=== PATIENT | male | born 1960 | race Caucasian/White ===

== ENCOUNTER 2016-09-26 11:03 | Day surgery (SDC) | payer OTHER ==
[2016-09-23 15:34] VITALS: BMI 28.7
[~2016-09-26 11:03] MED LIST: LACTATED RINGERS 1,000 ML IV SCH; LIDOCAINE 1% 20 ML VIAL (10MG/ML) FOR IV START INTRADERMA PRN
[2016-09-26 11:43] VITALS: RESP 16; TEMP 98.3
[2016-09-26] MEDS ORDERED: PROPOFOL 10 MG/ML 20 ML VIAL IV ONE (12:49)
--- NOTE | 2016-09-26 13:21 | P.OP ---
Date of Procedure: 09/26/16 Preoperative Diagnosis: Diverticuitis with mircroperforation Postoperative Diagnosis: Diverticulosis of large intestine without perforation or bleeding Transverse colon polyp Procedure(s) Performed: Colonoscopy with hot snare polypectomy Anesthesia: LUCY Surgeon: Cheryle Campbell Estimated Blood Loss (ml): 1 Pathology: other Condition: stable Disposition: PACU Indications for Procedure: history of diverituclitis Operative Findings: Small flat poylp Diverticulosis in the sigmoid colon Description of Procedure: The patient was brought to the endoscopy suite and placed in lateral decubitus position. IV sedation was given as per anesthesia team. A timeout was performed to verify correct patient and correct procedure.Perianal examination did not reveal any external hemorrhoids. Digital rectal examination was performed. Prostate was of normal size. A well- lubricated endoscope was passed per rectally and was gradually advanced beyond the sigmoid colon, splenic flexure, transverse colon, hepatic flexure and cecum. The ileocecal valve was visualized. Then minimal diverticulosis noted without any evidence of diverticulitis within the simoigs colon. Scope was gradually withdrawn inspecting all the mucosal surfaces. A polyp was seen in the transverse colon near the splenic flexure and removed with hot snare polypectomy.. Bowel prep was fair. No other polyps or masses noted. Retroflexed in the rectum and no internal hemorrhoid was noted . The scope was gradually withdrawn. Patient tolerated the procedure well and was taken to post anesthesia care unit in stable condition. Recommend repeat colonoscopy in 10 years
[2016-09-26 13:54] VITALS: BP 138/77; PULSE 64
== END 2016-09-26 14:04 | disposition home or self-care (01) ==
LOC: ORWHC2ENDO 11:03
PROVIDERS: ATTEND Surgery
DX: K57.30 Diverticulosis of large intestine without perforation or abscess without bleeding (principal); D12.3 Benign neoplasm of transverse colon; I10 Essential (primary) hypertension; E78.5 Hyperlipidemia, unspecified; G89.29 Other chronic pain; Z79.82 Long term (current) use of aspirin; Z79.891 Long term (current) use of opiate analgesic; Z79.899 Other long term (current) drug therapy; Z91.030 Bee allergy status; Z91.09 Other allergy status, other than to drugs and biological substances; Z91.013 Allergy to seafood; Z87.891 Personal history of nicotine dependence
CPT/HCPCS: 88305; 45385; J2704

== ENCOUNTER → 2016-10-09 | Outpatient (CLI) | payer OTHER ==
[2016-10-09 14:20] LABS: Blood Urea Nitrogen 14 mg/dL (9-20); Non-African American GFR(MDRD) >60 (>60 ml/min/1.73 sqM)
== END | disposition home or self-care (01) ==
LOC: LABWHC1 13:45
PROVIDERS: ATTEND Nurse Practitioner Acute Care
DX: M54.5 Low back pain (principal); M54.6 Pain in thoracic spine
CPT/HCPCS: 36415; 82565; 84520

== ENCOUNTER → 2016-10-10 | Outpatient (CLI) | payer OTHER ==
--- NOTE | 2016-10-10 22:19 | MR ---
EXAMINATION TYPE: MR thoracic spine wo con DATE OF EXAM: 10/10/2016 6:28 PM COMPARISON: NONE HISTORY: Tspine pain CONTRAST: Performed utilizing 0 mL intravenous MultiHance gadolinium contrast. TECHNIQUE: Multiplanar, multiecho imaging on a 3.0 Carmen magnet is performed through the thoracic spi ne. Spinal cord maintains normal signal through its visualized course. Vertebral body alignment is normal. Vertebral body heights are preserved. There is mild right paracentral disc bulge T2-T3 with mild anterior thecal sac compression. No cord c ontact is evident. No spinal canal stenosis present. Neural foramen are patent. Minimal right paracen tral endplate changes at T1-2 is present with minimal anterior thecal sac contact. No cord contact is evident. No spinal canal stenosis is present. Neural foramen are patent. Disc desiccation is present. No spinal canal stenosis is evident. IMPRESSIONS: 1. Mild right paracentral disc bulging T1-2 and T2-3. 2. This is diminished at the T2-3 level from comparison study.
--- NOTE | 2016-10-10 22:23 | MR ---
EXAMINATION TYPE: MR lumbar spine wo/w con DATE OF EXAM: 10/10/2016 6:29 PM COMPARISON: 11/17/2014 HISTORY: Lumbago CONTRAST: 18 mL intravenous MultiHance. TECHNIQUE: Multiplanar, multisequence images of the lumbar spine were acquired. FINDINGS: There is a cord termination at approximately the L1 level. Disc heights appear preserved. L4-5 and L5-S1 disc hydration is diminished. L5-S1: Broad-based disc bulge is present with anterior thecal sac contact. Left S1 nerve root eugene andrez and displacement appears to be present. Minimal right S1 nerve root contacts not entirely exclud ed. There is mild right and [id number] left foraminal narrowing. No AP spinal canal stenosis is present. The impression on the left S1 nerve root may have increased over the interval. L4-L5: Minimal disc bulge may be present. This has anterior thecal sac contact. No AP spinal canal st enosis present. No foraminal stenosis. Facet hypertrophy is present.. L3-L4: No significant disc bulge or disc herniation. No spinal canal stenosis. No foraminal stenosi s. . L2-L3: No significant disc bulge or disc herniation. No spinal canal stenosis. No foraminal stenosi s. . L1-L2: No significant disc bulge or disc herniation. No spinal canal stenosis. No foraminal stenosi s. . T12-L1: No significant disc bulge or disc herniation. No spinal canal stenosis. No foraminal stenos is. . IMPRESSION: 1. Central and left paracentral disc bulging L5-S1 likely has nerve root compression and posterior di splacement of the left S1 nerve root. Correlate with radicular symptoms. Findings appear to be increa sing from the comparison 2014. 2. Minimal disc bulge L4-5 with anterior thecal sac flattening.
== END | disposition home or self-care (01) ==
LOC: RADMRIMAIN 17:06
PROVIDERS: ATTEND Nurse Practitioner Acute Care
DX: M51.24 Other intervertebral disc displacement, thoracic region (principal); M51.27 Other intervertebral disc displacement, lumbosacral region
CPT/HCPCS: 72146; 72158; A9577

== ENCOUNTER 2017-03-14 16:17 | Emergency (ER) | payer OTHER ==
[2017-03-14] MEDS ORDERED: SODIUM CHLORIDE 0.9% 1,000 ML IV STA (17:33)
[2017-03-14] MEDS ORDERED: ORPHENADRINE 30 MG/ML 2 ML VIAL IVP STA (17:34)
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
[2017-03-14 18:10] LABS: Basophils # (A) 0.1 k/uL (0-0.2); Basophils % (A) 1 %; CH 32.5; CHCM 35.3; Eosinophils # (A) 0.1 k/uL (0-0.7); Eosinophils % (A) 1 %; HCT 51.2 % (39.0-53.0); HDW 2.51; HGB 17.8 gm/dL (13.0-17.5); Luc # (Auto) 0.33; Luc % (Auto) 3; Lymphocytes # (A) 1.8 k/uL (1.0-4.8); Lymphocytes % (A) 15 %; MCH 32.1 pg (25.0-35.0); MCHC 34.7 g/dL (31.0-37.0); MCV 92.6 fL (80.0-100.0); Monocytes # (A) 0.7 k/uL (0-1.0); Monocytes % (A) 6 %; Neutrophils % (A) 75 %; RBC 5.53 m/uL (4.30-5.90); RDW 13.6 % (11.5-15.5); WBC 12.1 k/uL (3.8-10.6); WBC (Perox) 11.65
[2017-03-14 18:23] LABS: ALT 45 U/L (21-72); AST 31 U/L (17-59); Alkaline Phosphatase 87 U/L (38-126); Anion Gap 14 mmol/L; Blood Urea Nitrogen 15 mg/dL (9-20); Calcium 9.8 mg/dL (8.4-10.2); Carbon Dioxide 21 mmol/L (22-30); Chloride 103 mmol/L (98-107); Glucose 95 mg/dL (74-99); Non-African American GFR(MDRD) >60 (>60 ml/min/1.73 sqM); Potassium 4.2 mmol/L (3.5-5.1); Sodium 138 mmol/L (137-145); Total Bilirubin 0.7 mg/dL (0.2-1.3); Total Protein 8.3 g/dL (6.3-8.2)
[2017-03-14 19:41] VITALS: BP 170/91; PULSE 58; RESP 18; TEMP 98.1
== END 2017-03-14 19:44 | disposition home or self-care (01) ==
LOC: EC 16:17
DX: M79.605 Pain in left leg (principal); M79.604 Pain in right leg; R11.10 Vomiting, unspecified; I10 Essential (primary) hypertension; M19.90 Unspecified osteoarthritis, unspecified site; Z85.828 Personal history of other malignant neoplasm of skin; Z87.891 Personal history of nicotine dependence; Z79.82 Long term (current) use of aspirin; Z79.891 Long term (current) use of opiate analgesic; Z79.899 Other long term (current) drug therapy
CPT/HCPCS: 36415; 80053; 85025; 99284; 96374; 96361; J2360

== ENCOUNTER 2017-03-16 09:04 | Inpatient (IN) | payer OTHER ==
[2017-03-16] MEDS ORDERED: SODIUM CHLORIDE 0.9% 1,000 ML IV STA (09:07)
[2017-03-16] MEDS ORDERED: RX INFO: IV CONTRAST WAS GIVEN 1 EACH MISC MISCELLANE PRN ×2 (09:07→15:32)
[2017-03-16] MEDS ORDERED: HYDROmorphone 1 MG/ML 1 ML SYRINGE IVP STA ×3 (09:12→14:51)
[2017-03-16] MEDS ORDERED: diphenhydrAMINE 50 MG/ML 1 ML VIAL IVP STA ×2 (09:12→15:32)
[2017-03-16] MEDS ORDERED: FAMOTIDINE 20 MG/2 ML VIAL IV STA (09:12)
[2017-03-16] MEDS ORDERED: ONDANSETRON 4 MG/2 ML VIAL IVP STA (09:12)
[2017-03-16] MEDS ORDERED: methylPREDNISolone SOD SUCCI 125 MG/2 ML VIAL IV STA (09:12)
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
[2017-03-16 10:11] LABS: ALT 42 U/L (21-72); AST 21 U/L (17-59); Alkaline Phosphatase 91 U/L (38-126); Amylase <30 U/L (30-110); Anion Gap 12 mmol/L; Blood Urea Nitrogen 20 mg/dL (9-20); Carbon Dioxide 15 mmol/L (22-30); Chloride 110 mmol/L (98-107); Glucose 178 mg/dL (74-99); Non-African American GFR(MDRD) >60 (>60 ml/min/1.73 sqM); Potassium 5.2 mmol/L (3.5-5.1); Sodium 137 mmol/L (137-145); Total Bilirubin 0.9 mg/dL (0.2-1.3); Total Protein 6.7 g/dL (6.3-8.2)
[2017-03-16 10:15] LABS: INR 1.2 (<1.2)
[2017-03-16 10:16] LABS: Prothrombin Time 11.7 sec (9.0-12.0)
[2017-03-16 10:18] LABS: CH 32.4; CHCM 34.2; HCT 51.9 % (39.0-53.0); HDW 2.51; HGB 17.7 gm/dL (13.0-17.5); Immature Gran Flag Moderate; MCH 32.3 pg (25.0-35.0); MCHC 34.1 g/dL (31.0-37.0); MCV 94.9 fL (80.0-100.0); Mean Platelet Volume 7.2; Partial Thromboplastin Time 23.7 sec (22.0-30.0); RBC 5.47 m/uL (4.30-5.90); RDW 13.4 % (11.5-15.5); WBC (Perox) 12.14
--- NOTE | 2017-03-16 10:31 | CT ---
EXAMINATION TYPE: CT abdomen pelvis w con DATE OF EXAM: 03/16/2017 COMPARISON: 06/16/2016 INDICATION: LLQ pain, history of diverticulitis DLP: 1582.7 mGycm, Automated exposure control for dose reduction was used. CONTRAST: 100 mL of Omnipaque 300. Study performed without Oral Contrast TECHNIQUE: Axial images were obtained from above the diaphragm to the pubic rami in the axial plane a t 5 mm thick sections. Reconstructed images are reviewed on the computer in the coronal plane. FINDINGS: Limited CT sections are obtained the lung bases. Some compressive atelectasis within the posterior r ight lung base. Lung bases are otherwise clear CT ABDOMEN: There are multiple scattered areas of free air throughout the abdomen. Inflammatory alexander es are adjacent to the distal descending proximal sigmoid colon region. Rupture of a diverticulum cheikh uld be considered at this level. Liver: Normal Spleen: Normal Pancreas: Normal Adrenal glands: The adrenal glands are normal. Gallbladder: Normal Kidneys: No masses are evident. No hydronephrosis is present. No cysts are present. Delayed images were obtained through the kidneys, which remain unremarkable. Aorta: Vascular calcification is within the aorta. Aortic stent has been placed below the renal tim linsey extending to the femoral regions. Inferior vena cava: Normal. CT PELVIS: Proximal ascending and transverse colon appears normal. Small bowel loops without oral contrast rashmi l. Inflammatory changes are in the left lower quadrant with some inflammatory changes adjacent to sma ll bowel is. No obstruction is evident. Findings appear to be related to acute diverticulitis. Appendix: Not visualized. There is fluid adjacent to the cecum. Urinary bladder: Normal. Genitourinary structures: Prostate contains calcification. Osseous structures: No suspicious lytic or sclerotic lesions. IMPRESSIONS: 1. Scattered punctate areas of free air throughout the abdomen. This may be related to a ruptured di verticulum an acute diverticulitis of the left lower quadrant. 2. Inflammatory changes with a couple of diverticulum in the descending colon sigmoid colon junction region suspicious for acute diverticulitis. 3. Report was called to the emergency room physician by Dr. Demarco by telephone at time of interpret ation.
[2017-03-16] MEDS ORDERED: LEVOFLOXACIN 750MG-D5W PMX 750 MG in DEXTROSE/WATER 1 150ML.BAG IVPB STA (10:33)
[2017-03-16] MEDS ORDERED: metroNIDAZOLE-NS PMX 500 MG in SALINE 1 100ML.BAG IVPB STA (10:35)
[2017-03-16 10:47] LABS: Add Differential Manual Differential
[2017-03-16 10:50] LABS: Band Neutrophils % 16 %; Nucleated Red Blood Cells 0 /100 WBC (0-0); Total Cells Counted 200
[2017-03-16 10:51] LABS: Manual Review Performed
[2017-03-16] MEDS ORDERED: NALOXONE 0.4 MG/ML 1 ML VIAL IV PRN (10:56)
[2017-03-16] MEDS ORDERED: HYDROmorphone 1 MG/ML 1 ML SYRINGE IV PRN (10:56)
[2017-03-16] MEDS ORDERED: LORazepam 2 MG/ML SYRINGE IV PRN (10:56)
[2017-03-16] MEDS ORDERED: ONDANSETRON 4 MG/2 ML VIAL IVP PRN (10:56)
[2017-03-16 12:07] VITALS: BMI 28.7
[2017-03-16] MEDS ORDERED: SODIUM CHLORIDE 0.9% 1,000 ML IV ONE (14:16)
[2017-03-16] MEDS ORDERED: SODIUM CHLORIDE 0.9% 500 ML IV ONE (14:16)
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
[2017-03-16] MEDS ORDERED: HYDROCORTISONE SUCCINATE 100 MG/2 ML VIAL IV STA (15:31)
[2017-03-16 15:43] VITALS: BP 166/104; PULSE 103; RESP 20; TEMP 97.3
[2017-03-16 15:51] LABS: Appearance,Urine Clear (Clear); Bilirubin,Urine Negative (Negative); Glucose,Urine (UA) 3+ (Negative); Ketones,Urine Negative (Negative); Leukocyte Esterase,Urine Negative (Negative); Nitrite,Urine Negative (Negative); Protein,Urine Trace (Negative); UA Billing (MACRO vs. MICRO) CHEM; Urobilinogen,Urine <2.0 mg/dL (<2.0)
[2017-03-16 15:59] LABS: Specific Gravity,Urine >1.050 (1.001-1.035)
[2017-03-16] MEDS ORDERED: GABAPENTIN 300 MG CAP PO SCH (16:00)
[2017-03-16] MEDS: HYDROmorphone 2 MG/ML 1 ML SYRINGE IV PRN ×2 (16:39→18:26)
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
--- NOTE | 2017-03-16 17:37 | CT ---
EXAMINATION TYPE: CT angio lower extremity LT DATE OF EXAM: 03/16/2017 5:19 PM COMPARISON: NONE HISTORY: Patient complains of left leg pain. RN unable to get doppler pulse. CT DLP: 918.7 mGycm Automated exposure control for dose reduction was used. TECHNIQUE: Performed with IV Contrast, patient injected with 100 mL of Omnipaque 350. . FINDINGS: Multiple axial sections were obtained from the iliac crest to the bottom of the feet with intravenous contrast. There are 3-D post processed images. There is demonstration of arterial flow in the anterior and posterior tibial arteries on the right si de as well as the peroneal artery. I see no arterial flow during the images in the left tibial artery branches. There is arterial flow in the right popliteal artery with some mural thrombus. There is similarly no definite contrast in the left popliteal artery. There is very little contrast seen at the aortic bifurcation. There is apparent aorta iliac bypass gr aft which shows no contrast. There is inflammatory change around the mid sigmoid colon with fat stranding and sigmoid colon wall t hickening. There are sigmoid diverticula. There is severe stenosis of the lower abdominal aorta at th e aortic bifurcation. There is contrast in the urinary bladder from the previous CT scan of the abdom en today. There is mild free fluid in the pelvis. IMPRESSION: THERE ARE INFLAMMATORY CHANGES RELATED TO DIVERTICULITIS IN THE SIGMOID COLON. STENOSIS OF THE LOWER ABDOMINAL AORTA WITH BYPASS GRAFT THAT APPEARS OCCLUDED. THERE IS FLOW IN THE R IGHT ILIAC FEMORAL POPLITEAL AND TIBIAL ARTERIES. THERE IS UP TO 50% STENOSIS OF THE RIGHT FEMORAL AR MARGA. THERE IS POSSIBLE RIGHT FEMORAL ARTERY STENT AND SHOULD BE CORRELATED WITH THE SURGICAL HISTORY . ON THE LEFT SIDE THERE IS NO DEMONSTRATED FLOW IN THE LEFT ILIAC ARTERY BYPASS GRAFT WELL THE N ATIVE LEFT ILIAC ARTERY AND LEFT FEMORAL POPLITEAL AND TIBIAL ARTERIES. THIS COULD BE CONFIRMED BY [facility] IF CLINICALLY INDICATED.
[2017-03-16] MEDS ORDERED: HEPARIN SODIUM,PORCINE 5,000 UNIT/ML 1 ML VIAL IV PRN (17:54)
[2017-03-16] MEDS ORDERED: HEPARIN SODIUM,PORCINE/D5W PMX 25,000 UNIT in DEXTROSE/WATER 1 500ML.BAG IV SCH (18:00)
[2017-03-16] MEDS ORDERED: HEPARIN SODIUM,PORCINE 5,000 UNIT/ML 1 ML VIAL IV ONE (18:15)
[2017-03-16 18:29] LABS: Basophils % (A) 0 %; CH 31.9; CHCM 32.5; Eosinophils % (A) 0 %; HCT 46.5 % (39.0-53.0); HDW 2.49; HGB 15.4 gm/dL (13.0-17.5); Luc # (Auto) 0.13; Luc % (Auto) 1; Lymphocytes # (A) 0.3 k/uL (1.0-4.8); Lymphocytes % (A) 3 %; MCH 32.6 pg (25.0-35.0); MCHC 33.1 g/dL (31.0-37.0); MCV 98.5 fL (80.0-100.0); Mean Platelet Volume 6.9; Monocytes # (A) 0.4 k/uL (0-1.0); Monocytes % (A) 3 %; Neutrophils # (A) 10.4 k/uL (1.3-7.7); Neutrophils % (A) 93 %; RBC 4.72 m/uL (4.30-5.90); RDW 13.6 % (11.5-15.5); WBC 11.2 k/uL (3.8-10.6); WBC (Perox) 11.48
[2017-03-16 18:45] LABS: INR 1.3 (<1.2); Partial Thromboplastin Time 26.1 sec (22.0-30.0); Prothrombin Time 12.5 sec (9.0-12.0)
[2017-03-17] MEDS ORDERED: metroNIDAZOLE-NS PMX 500 MG in SALINE 1 100ML.BAG IVPB SCH
[2017-03-17] MEDS ORDERED: LEVOFLOXACIN 500MG-D5W PMX 500 MG in DEXTROSE/WATER 1 100ML.BAG IVPB SCH (10:00)
== END 2017-03-16 19:52 | disposition short-term general hospital (02) | DRG 872 ==
LOC: EC 09:04 → 4MS4W 10:30
PROVIDERS: ADMIT Hospitalist; ATTEND Hospitalist
DX: A41.9 Sepsis, unspecified organism (principal); E87.2 Acidosis; K57.20 Diverticulitis of large intestine with perforation and abscess without bleeding; E86.0 Dehydration; E87.5 Hyperkalemia; F32.9 Major depressive disorder, single episode, unspecified; G89.4 Chronic pain syndrome; I10 Essential (primary) hypertension; J44.9 Chronic obstructive pulmonary disease, unspecified; M54.9 Dorsalgia, unspecified; R74.8 Abnormal levels of other serum enzymes; M19.90 Unspecified osteoarthritis, unspecified site; I99.8 Other disorder of circulatory system; Z79.82 Long term (current) use of aspirin; Z79.899 Other long term (current) drug therapy; Z85.828 Personal history of other malignant neoplasm of skin; Z87.891 Personal history of nicotine dependence; Z91.041 Radiographic dye allergy status; Z82.49 Family history of ischemic heart disease and other diseases of the circulatory system
CPT/HCPCS: 36415; 74177; 80053; 81003; 82150; 82553; 83605; 83690; 85025; 85610; 85730; 87040; 87086; 96361; 96365; 96375; 96376; 99285

== ENCOUNTER → 2017-04-01 | Outpatient (CLI) | payer OTHER ==
[2017-04-01 12:42] LABS: ALT 40 U/L (21-72); AST 19 U/L (17-59); Alkaline Phosphatase 98 U/L (38-126); Anion Gap 12 mmol/L; Blood Urea Nitrogen 13 mg/dL (9-20); Calcium 9.4 mg/dL (8.4-10.2); Carbon Dioxide 21 mmol/L (22-30); Chloride 104 mmol/L (98-107); Glucose 104 mg/dL (74-99); Non-African American GFR(MDRD) >60 (>60 ml/min/1.73 sqM); Sodium 137 mmol/L (137-145); Total Bilirubin 0.4 mg/dL (0.2-1.3); Total Protein 7.2 g/dL (6.3-8.2)
[2017-04-01 12:57] LABS: Anisocytosis Slight; Basophils # (A) 0.1 k/uL (0-0.2); Basophils % (A) 1 %; CH 32.3; CHCM 32.3; Eosinophils # (A) 0.1 k/uL (0-0.7); Eosinophils % (A) 1 %; HCT 35.9 % (39.0-53.0); HDW 3.22; Hypochromasia Slight; Luc # (Auto) 0.34; Luc % (Auto) 2; Lymphocytes # (A) 1.4 k/uL (1.0-4.8); Lymphocytes % (A) 10 %; MCH 32.6 pg (25.0-35.0); MCHC 32.4 g/dL (31.0-37.0); MCV 100.6 fL (80.0-100.0); Macrocytosis Slight; Mean Platelet Volume 7.9; Monocytes % (A) 7 %; Neutrophils # (A) 11.3 k/uL (1.3-7.7); Neutrophils % (A) 79 %; RBC 3.57 m/uL (4.30-5.90); RDW 16.8 % (11.5-15.5); WBC 14.3 k/uL (3.8-10.6)
[2017-04-01 13:01] LABS: HGB 11.6 gm/dL (13.0-17.5)
== END | disposition home or self-care (01) ==
LOC: LABWHC1 11:44
PROVIDERS: ATTEND Family Medicine
DX: Z09 Encounter for follow-up examination after completed treatment for conditions other than malignant neoplasm (principal)
CPT/HCPCS: 36415; 80053; 85025

== ENCOUNTER → 2017-04-04 | Outpatient (CLI) | payer OTHER ==
[2017-04-04 11:45] LABS: Anisocytosis Slight; Basophils # (A) 0.1 k/uL (0-0.2); Basophils % (A) 1 %; CH 32.3; CHCM 32.7; Eosinophils # (A) 0.1 k/uL (0-0.7); Eosinophils % (A) 1 %; HCT 37.6 % (39.0-53.0); HDW 3.03; Luc # (Auto) 0.39; Luc % (Auto) 3; Lymphocytes # (A) 1.6 k/uL (1.0-4.8); Lymphocytes % (A) 11 %; MCH 31.8 pg (25.0-35.0); MCV 99.4 fL (80.0-100.0); Macrocytosis Slight; Mean Platelet Volume 7.5; Monocytes # (A) 0.9 k/uL (0-1.0); Monocytes % (A) 6 %; Neutrophils # (A) 11.5 k/uL (1.3-7.7); Neutrophils % (A) 79 %; RBC 3.78 m/uL (4.30-5.90); RDW 16.3 % (11.5-15.5); WBC 14.6 k/uL (3.8-10.6); WBC (Perox) 14.91
== END | disposition home or self-care (01) ==
LOC: LABWHC1 11:04
PROVIDERS: ATTEND Family Medicine
DX: R89.9 Unspecified abnormal finding in specimens from other organs, systems and tissues (principal)
CPT/HCPCS: 36415; 85025

== ENCOUNTER → 2017-04-10 | Outpatient (CLI) | payer OTHER ==
[2017-04-10 12:22] LABS: % Iron Saturation 22.1 % (20-50)
[2017-04-10 12:25] LABS: Basophils # (A) 0.1 k/uL (0-0.2); Basophils % (A) 1 %; CH 32.2; CHCM 32.1; Eosinophils # (A) 0.1 k/uL (0-0.7); Eosinophils % (A) 1 %; HCT 39.4 % (39.0-53.0); HDW 2.74; HGB 12.4 gm/dL (13.0-17.5); Luc # (Auto) 0.19; Luc % (Auto) 2; Lymphocytes # (A) 1.6 k/uL (1.0-4.8); Lymphocytes % (A) 18 %; MCH 31.6 pg (25.0-35.0); MCHC 31.4 g/dL (31.0-37.0); MCV 100.6 fL (80.0-100.0); Macrocytosis Slight; Mean Platelet Volume 7.2; Monocytes # (A) 0.4 k/uL (0-1.0); Monocytes % (A) 5 %; Neutrophils # (A) 6.6 k/uL (1.3-7.7); Neutrophils % (A) 73 %; RBC 3.92 m/uL (4.30-5.90); WBC 9.1 k/uL (3.8-10.6); WBC (Perox) 9.52
== END | disposition home or self-care (01) ==
LOC: LABWHC1 11:31
PROVIDERS: ATTEND Family Medicine
DX: R89.9 Unspecified abnormal finding in specimens from other organs, systems and tissues (principal)
CPT/HCPCS: 36415; 82728; 83540; 83550; 85025

== ENCOUNTER → 2017-05-01 | Outpatient (CLI) | payer OTHER ==
[2017-05-01 14:23] LABS: CHCM 32.3; HCT 42.1 % (39.0-53.0); HDW 2.61; HGB 13.2 gm/dL (13.0-17.5); MCH 31.1 pg (25.0-35.0); MCHC 31.3 g/dL (31.0-37.0); MCV 99.3 fL (80.0-100.0); Macrocytosis Slight; Mean Platelet Volume 7.4; RBC 4.24 m/uL (4.30-5.90); RDW 14.8 % (11.5-15.5); WBC 11.7 k/uL (3.8-10.6)
[2017-05-01 14:45] LABS: ALT 49 U/L (21-72); AST 22 U/L (17-59); Anion Gap 12 mmol/L; Blood Urea Nitrogen 13 mg/dL (9-20); Calcium 9.6 mg/dL (8.4-10.2); Carbon Dioxide 22 mmol/L (22-30); Chloride 107 mmol/L (98-107); Glucose 87 mg/dL (74-99); Non-African American GFR(MDRD) >60 (>60 ml/min/1.73 sqM); Potassium 4.5 mmol/L (3.5-5.1); Sodium 141 mmol/L (137-145)
[2017-05-01 18:33] LABS: Iron Saturation 14.97 (15.00-50.00)
== END | disposition home or self-care (01) ==
LOC: LABWHC1 13:18
PROVIDERS: ATTEND Family Medicine
DX: E78.5 Hyperlipidemia, unspecified (principal); I10 Essential (primary) hypertension; D64.9 Anemia, unspecified
CPT/HCPCS: 36415; 80048; 82728; 83540; 83550; 84450; 84460; 85027

== ENCOUNTER → 2017-12-08 | Outpatient (CLI) | payer OTHER ==
[2017-12-08 10:53] LABS: HGB 15.6 gm/dL (13.0-17.5); MCH 29.9 pg (25.0-35.0); MCHC 33.3 g/dL (31.0-37.0); Mean Platelet Volume 7.3; Platelet Count 285 k/uL (150-450); RBC 5.23 m/uL (4.30-5.90); RDW 14.3 % (11.5-15.5); WBC 11.2 k/uL (3.8-10.6)
[2017-12-08 10:56] LABS: Appearance,Urine Clear (Clear); Bilirubin,Urine Negative (Negative); Blood,Urine Negative (Negative); Color,Urine Yellow; Glucose,Urine (UA) Negative (Negative); Ketones,Urine Negative (Negative); Leukocyte Esterase,Urine Negative (Negative); Nitrite,Urine Negative (Negative); PH, Urine 5.5 (5.0-8.0); Protein,Urine Negative (Negative); Urobilinogen,Urine <2.0 mg/dL (<2.0)
[2017-12-08 11:01] LABS: ALT 48 U/L (21-72); AST 25 U/L (17-59); Albumin 4.2 g/dL (3.5-5.0); Alkaline Phosphatase 84 U/L (38-126); Anion Gap 13 mmol/L; Blood Urea Nitrogen 15 mg/dL (9-20); Calcium 9.4 mg/dL (8.4-10.2); Carbon Dioxide 21 mmol/L (22-30); Chloride 107 mmol/L (98-107); Cholesterol 211 mg/dL (<200); Creatine Kinase 54 U/L (55-170); Glucose 123 mg/dL (74-99); HDL Cholesterol 41 mg/dL (40-60); LDL Cholesterol,Calculated 123 mg/dL (0-99); Potassium 4.2 mmol/L (3.5-5.1); Sodium 141 mmol/L (137-145); Total Bilirubin 0.3 mg/dL (0.2-1.3); Total Protein 7.2 g/dL (6.3-8.2); Triglycerides 236 mg/dL (<150)
== END ==
LOC: LABWHC1 09:52
PROVIDERS: ATTEND Family Medicine
DX: Z00.00 Encounter for general adult medical examination without abnormal findings (principal)
CPT/HCPCS: 36415; 80053; 80061; 81003; 82550; 84153; 85027

== ENCOUNTER → 2018-08-06 | Outpatient (CLI) | payer OTHER ==
[2018-08-06 11:55] LABS: Basophils # (A) 0.1 k/uL (0-0.2); Basophils % (A) 1 %; Eosinophils # (A) 0.2 k/uL (0-0.7); Eosinophils % (A) 2 %; HCT 49.9 % (39.0-53.0); HGB 15.8 gm/dL (13.0-17.5); Lymphocytes # (A) 1.9 k/uL (1.0-4.8); Lymphocytes % (A) 20 %; MCH 29.9 pg (25.0-35.0); MCHC 31.6 g/dL (31.0-37.0); MCV 94.4 fL (80.0-100.0); Mean Platelet Volume 6.3; Monocytes # (A) 0.5 k/uL (0-1.0); Monocytes % (A) 5 %; Neutrophils # (A) 6.5 k/uL (1.3-7.7); Neutrophils % (A) 68 %; Platelet Count 279 k/uL (150-450); RBC 5.28 m/uL (4.30-5.90); RDW 13.2 % (11.5-15.5); WBC 9.6 k/uL (3.8-10.6)
[2018-08-06 16:43] LABS: Anion Gap 10.5 mmol/L (4.00-12.00); Calcium 9.5 mg/dL (8.7-10.3); Carbon Dioxide 22.5 mmol/L (21.6-31.8); LDL Cholesterol,Calculated 104.6 mg/dL (0.0-131.0); Potassium 4.5 mmol/L (3.5-5.5); VLDL Calculation 31.4 mg/dL (5.00-40.00)
== END | disposition home or self-care (01) ==
LOC: LABWHC1 10:38
PROVIDERS: ATTEND Family Medicine
DX: E78.5 Hyperlipidemia, unspecified (principal); I10 Essential (primary) hypertension
CPT/HCPCS: 36415; 80048; 80061; 84450; 84460; 85025

== ENCOUNTER → 2018-08-06 | Outpatient (CLI) | payer OTHER ==
--- NOTE | 2018-08-06 11:57 | XR ---
EXAMINATION TYPE: XR chest 2V DATE OF EXAM: 08/06/2018 COMPARISON: Chest x-ray February 05, 2015. HISTORY: Chest pain TECHNIQUE: Frontal and lateral views of the chest are obtained. FINDINGS: There is no focal air space opacity, pleural effusion, or pneumothorax seen. The cardiac silhouette size is within normal limits. The osseous structures are intact. IMPRESSION: No acute cardiopulmonary process.
== END ==
LOC: RADXRMAIN 11:27
PROVIDERS: ATTEND Family Medicine
DX: R07.89 Other chest pain (principal)
CPT/HCPCS: 71046

== ENCOUNTER → 2019-01-26 | Outpatient (CLI) | payer OTHER ==
[2019-01-26 09:38] LABS: Basophils # (A) 0.1 k/uL (0-0.2); Basophils % (A) 1 %; Eosinophils # (A) 0.2 k/uL (0-0.7); Eosinophils % (A) 2 %; HCT 50.1 % (39.0-53.0); HGB 16.2 gm/dL (13.0-17.5); Lymphocytes % (A) 23 %; MCH 30.5 pg (25.0-35.0); MCHC 32.3 g/dL (31.0-37.0); MCV 94.6 fL (80.0-100.0); Mean Platelet Volume 6.6; Monocytes # (A) 0.6 k/uL (0-1.0); Monocytes % (A) 6 %; Neutrophils # (A) 5.6 k/uL (1.3-7.7); Neutrophils % (A) 64 %; Platelet Count 259 k/uL (150-450); RDW 13.6 % (11.5-15.5); WBC 8.8 k/uL (3.8-10.6)
[2019-01-26 18:05] LABS: African American GFR (CKD) 110.3 (60.0-200.0); Anion Gap 9.8 mmol/L (4.00-12.00); BUN/Creat Ratio 15.56 Ratio (12.00-20.00); Calcium 9.5 mg/dL (8.7-10.3); Carbon Dioxide 21.2 mmol/L (21.6-31.8); Potassium 4.5 mmol/L (3.5-5.5)
== END | disposition home or self-care (01) ==
LOC: LABWHC1 08:45
PROVIDERS: ATTEND Family Medicine
DX: I10 Essential (primary) hypertension (principal); E78.5 Hyperlipidemia, unspecified; Z13.9 Encounter for screening, unspecified
CPT/HCPCS: 36415; 80048; 80061; 84450; 84460; 85025; 86803

== ENCOUNTER 2021-08-24 09:10 | Inpatient (IN) | payer MEDICARE, OTHER ==
[2021-08-24] MEDS ORDERED: OXYMETAZOLINE 0.05% NASL SPRAY 1 SPRAY BOTTLE NASAL STA ×2 (09:39→15:40)
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
[2021-08-24] MEDS ORDERED: cloNIDine HCL 0.1 MG TAB PO STA (14:33)
[2021-08-24] MEDS ORDERED: LORazepam 1 MG TAB PO STA (14:33)
[2021-08-24] MEDS ORDERED: TRANEXAMIC ACID 1,000 MG/10 ML VIAL MISCELLANE ONE (15:39)
[2021-08-24] MEDS ORDERED: BACITRACIN OINT 1 EACH PACKET TOPICAL ONE ×2 (15:46→15:48)
[2021-08-24] MEDS ORDERED: SODIUM CHLORIDE 0.9% 500 ML 500 ML IV STA (16:53)
[2021-08-24 16:59] LABS: Basophils % (A) 0 %; Eosinophils # (A) 0.1 k/uL (0-0.7); Eosinophils % (A) 1 %; HCT 48.3 % (39.0-53.0); HGB 16.1 gm/dL (13.0-17.5); Lymphocytes # (A) 1.3 k/uL (1.0-4.8); Lymphocytes % (A) 7 %; MCH 32.8 pg (25.0-35.0); MCHC 33.5 g/dL (31.0-37.0); Mean Platelet Volume 7.5; Monocytes # (A) 0.6 k/uL (0-1.0); Monocytes % (A) 3 %; Neutrophils # (A) 15.3 k/uL (1.3-7.7); Neutrophils % (A) 87 %; Platelet Count 231 k/uL (150-450); RBC 4.92 m/uL (4.30-5.90); RDW 13.4 % (11.5-15.5); WBC 17.6 k/uL (3.8-10.6)
[2021-08-24 17:56] LABS: INR 1.4 (<1.2); Partial Thromboplastin Time 32.8 sec (22.0-30.0); Prothrombin Time 14.9 sec (9.0-12.0)
[2021-08-24] MEDS: METOPROLOL TARTRATE 25 MG TAB PO SCH (20:45)
[2021-08-24] MEDS: ALPRAZolam 0.5 MG TAB PO PRN (20:45)
[2021-08-24] MEDS: AMOXIC-POT CLAV 875-125MG 1 EACH TAB PO SCH (20:45)
[2021-08-24] MEDS: ATORVASTATIN 40 MG TAB PO SCH (20:45)
[2021-08-24 22:07] LABS: African American GFR (CKD) >90 (>60 ml/min/1.73 sqM); Anion Gap 10 mmol/L; Blood Urea Nitrogen 31 mg/dL (9-20); Calcium 8.8 mg/dL (8.4-10.2); Carbon Dioxide 21 mmol/L (22-30); Chloride 107 mmol/L (98-107); Glucose 150 mg/dL (74-99); Non-African American GFR(CKD) >90 (>60 ml/min/1.73 sqM); Sodium 138 mmol/L (137-145)
[2021-08-25] MEDS: ONDANSETRON 4 MG/2 ML VIAL IVP PRN (04:58)
[2021-08-25] MEDS: ALPRAZolam 0.5 MG TAB PO PRN ×3 (05:04→23:48)
[2021-08-25] MEDS: METOCLOPRAMIDE 5 MG/ML 2 ML VIAL IVP PRN (05:50)
[2021-08-25] MEDS ORDERED: ASPIRIN 81 MG PO SCH (09:00)
[2021-08-25 09:04] LABS: HCT 38.2 % (39.6-50.0); MCH 32.9 pg (27.0-32.0); MCV 96.7 fL (80.0-97.0); Mean Platelet Volume 10.2 fL (9.5-12.2); NRBC Per 100 WBC 0 /100 WBCS (0.0-0.0); Platelet Count 218 X 10*3/uL (140-440); RBC 3.95 X 10*6/uL (4.40-5.60); RDW 13.6 % (11.5-14.5); WBC 14.64 X 10*3/uL (4.50-10.00)
[2021-08-25] MEDS: SODIUM CHLORIDE 0.9% 1,000 ML IV SCH ×2 (09:15→20:55)
[2021-08-25] MEDS: METOPROLOL TARTRATE 25 MG TAB PO SCH ×2 (09:21→20:53)
[2021-08-25] MEDS: PANTOPRAZOLE 40 MG TABLET PO SCH (09:21)
[2021-08-25] MEDS: AMOXIC-POT CLAV 875-125MG 1 EACH TAB PO SCH (09:21)
[2021-08-25] MEDS: lisinopriL 10 MG TAB PO SCH (09:21)
[2021-08-25] MEDS ORDERED: THROMBIN (BOVINE) 5,000 UNIT VIAL TOPICAL STA (14:04)
--- NOTE | 2021-08-25 18:48 | CONS ---
CONSULTATION DATE OF CONSULTATION: 08/25/2021 CHIEF COMPLAINT: Bilateral epistaxis. HISTORY OF PRESENT ILLNESS: The patient is a very pleasant 61-year-old male who was admitted to [facility] via [facility] Emergency Room Department. The patient states that approximately 24 hours before his admission he developed bleeding from the left nostril while at home. In the past he has had minor nosebleeds which he has been able to stop by simply inserting tissue in the nose. He placed tissue in the left nostril and applied pressure. After several minutes he removed the tissue, thinking that the bleeding had stopped. However, the bleeding had not ceased and therefore the patient proceeded to [facility] Emergency Room Department. While in the emergency room, various techniques were taken to stop the bleeding, but these were not successful. At one point it was felt that the bleeding had been stopped, but as soon as the patient stood up the bleeding resumed from the left side and also from the right side. It was at this point that I was called by the emergency room doctor. I recommended that they insert a Merocel nasal tampon in the left naris as well as the right. Most likely the bleeding was coming from the left side and simply going around to the other side in the nasopharynx. The patient is a nonsmoker. He is resting comfortable comfortably at this time and is not having any acute bleeding. Past medical history reveals he has ALLERGIES to BEE VENOM, IODINE AND SHELLFISH. He is currently on Xarelto for DVTs. He states that he has some sort of clotting disorder but is not sure of the name of it. He is a nonsmoker. His other medications besides Xarelto include lisinopril Crestor, Prilosec, lopressor and one baby aspirin daily. The Xarelto and aspirin have been stopped because of the patient's bleeding. He has no history of asthma or diabetes mellitus. REVIEW OF SYSTEMS: Cardiovascular system is positive for hypertension, DVTs and a clotting disorder. Respiratory is negative. Gastrointestinal is positive for GERD. The remainder of the review of systems is essentially unremarkable. PHYSICAL EXAMINATION: This patient is a pleasant 61-year-old male who is alert, cooperative and well oriented to time and place. He is not in any acute distress at this time. He is also not actively bleeding. HEENT examination: Patient is normocephalic. Tympanic membranes are normal. Middle ear spaces are free of any fluid or infection. Pupils equal, round, reactive to light and accommodation. Extraocular movements within normal limits. Both nares are packed with Merocel nasal tampons. The right nasal tampon barely has any blood on it. The left nasal tampon is saturated with old blood but is not actively bleeding. Examination of oropharynx does not reveal any bleeding down the posterior pharyngeal wall. Cranial nerves 2 through 12 and the remainder of the head and neck exam is within normal limits. Chest/cardiovascular: Both lung samayoa are clear to percussion and auscultation. The patient is in regular sinus rhythm. S1and S2 are present without evidence any murmurs, S3s or S4s. Peripheral pulses are bilaterally symmetrical within normal limits. Abdomen has no evidence of any masses, megaly or tenderness. The abdomen is soft. The remainder of physical exam is essentially unremarkable. IMPRESSION: Left anterior-posterior epistaxis. PLAN: We will leave both nasal tampons in place for now. Tomorrow on Friday08/26/2021, I plan on removing the nasal tampon from the right side. During my visit with the patient, I injected approximately 5 mL of mixed thrombin powder into the left nasal tampon. This is to hopefully encourage clot formations in the left naris. I also re- taped the strings on the patient's tampons and applied a mustache dressing to act as a drip pad. My plan is to start the patient on Ancef 2 grams IV q.8 hours to prevent maxillary sinusitis because of the bleeding. In addition to this, we will get the patient started on Veno-dyne stockings because of his history of clotting disorder. I would like him to remain off the aspirin and Xarelto for now until we get the bleeding under control. I plan on seeing the patient on a daily basis. I do not anticipate his discharge any earlier than probably Friday. At that time of discharge he will probably still have the nasal packing in the left side, and this will be removed in my office. I generally like to leave the Merocel nasal tampons in place for anywhere from 4 to 7 days so that the blood vessels have plenty of time to thrombose, and this reduces the risk of the patient bleeding again. Certainly, removing the packing too early will only necessitate a new one being placed in the nares; and because of the nature of these nasal tampons(they are quite hard and when they are inserted),they tend to create new bleeding areas. Hopefully at the time of his discharge, I will be able to give the okay for at least the aspirin to be restarted. All of the patient's questions were answered, and he understands and is more than willing to comply with the staff's request. I want to take this opportunity to thank you for allowing me to assist in the care of your patient. I will continue to follow him on a daily basis. If I can be of any further assistance, please feel free to call my office.I spent approximately one hour with this patient. JANA / EUNICEN: [id number] / VENESSA
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
[2021-08-25] MEDS: ACETAMINOPHEN TAB 325 MG TAB PO PRN (20:54)
[2021-08-25] MEDS: TEMAZEPAM 15 MG CAP PO PRN (20:54)
[2021-08-25] MEDS: ATORVASTATIN 40 MG TAB PO SCH (20:54)
[2021-08-26] MEDS: METOCLOPRAMIDE 5 MG/ML 2 ML VIAL IVP PRN (03:43)
[2021-08-26] MEDS: lisinopriL 10 MG TAB PO SCH (07:45)
[2021-08-26] MEDS: PANTOPRAZOLE 40 MG TABLET PO SCH (07:45)
[2021-08-26] MEDS: METOPROLOL TARTRATE 25 MG TAB PO SCH ×2 (07:45→21:21)
[2021-08-26] MEDS ORDERED: THROMBIN (BOVINE) 5,000 UNIT VIAL TOPICAL ONE (09:00)
[2021-08-26 10:02] LABS: Basophils # (A) 0.07 X 10*3/uL (0.00-0.10); Basophils % (A) 0.4 %; Eosinophils # (A) 0.09 X 10*3/uL (0.04-0.35); Eosinophils % (A) 0.5 %; HCT 26.5 % (39.6-50.0); HGB 8.8 g/dL (13.0-17.0); Immature Grans, Automated 0.7 %; Lymphocytes # (A) 2.25 X 10*3/uL (0.90-5.00); Lymphocytes % (A) 13.6 %; MCH 32.5 pg (27.0-32.0); MCHC 33.2 g/dL (32.0-37.0); MCV 97.8 fL (80.0-97.0); Mean Platelet Volume 10.5 fL (9.5-12.2); Monocytes # (A) 1.53 X 10*3/uL (0.20-1.00); Monocytes % (A) 9.2 %; NRBC Per 100 WBC 0 /100 WBCS (0.0-0.0); Neutrophils # (A) 12.51 X 10*3/uL (1.80-7.70); Neutrophils % (A) 75.6 %; Platelet Count 195 X 10*3/uL (140-440); RBC 2.71 X 10*6/uL (4.40-5.60); RBC Morphology NORMAL; RDW 13.7 % (11.5-14.5); WBC 16.56 X 10*3/uL (4.50-10.00)
[2021-08-26 10:16] LABS: African American GFR (CKD) 127.6 (60.0-200.0); Anion Gap 13.4 mmol/L (10.00-18.00); BUN/Creat Ratio 57.17 Ratio (12.00-20.00); Blood Urea Nitrogen 34.3 mg/dL (9.0-27.0); Calcium 8.3 mg/dL (8.7-10.3); Carbon Dioxide 16.6 mmol/L (20.0-27.5); Non-African American GFR(CKD) 110.1 (60.0-200.0); Potassium 3.9 mmol/L (3.5-5.5)
[2021-08-26] MEDS: ALPRAZolam 0.5 MG TAB PO PRN (12:51)
[2021-08-26] MEDS: ONDANSETRON 4 MG/2 ML VIAL IVP PRN (12:53)
[2021-08-26] MEDS: ALPRAZolam 0.5 MG TAB PO SCH ×2 (16:33→21:18)
[2021-08-26] MEDS: SODIUM CHLORIDE 0.9% 1,000 ML IV SCH (16:33)
[2021-08-26] MEDS: ATORVASTATIN 40 MG TAB PO SCH (21:18)
[2021-08-27] MEDS: SODIUM CHLORIDE 0.9% 1,000 ML IV SCH ×2 (01:33→13:20)
[2021-08-27] MEDS: ALPRAZolam 0.5 MG TAB PO SCH ×3 (07:27→22:47)
[2021-08-27] MEDS: PANTOPRAZOLE 40 MG TABLET PO SCH (07:27)
[2021-08-27] MEDS: METOPROLOL TARTRATE 25 MG TAB PO SCH ×3 (07:28→22:51)
[2021-08-27] MEDS: lisinopriL 10 MG TAB PO SCH ×2 (07:28→15:07)
[2021-08-27] MEDS ORDERED: ACETAMINOPHEN IV (For NPO) 1,000 MG in EMPTY BAG 1 BAG IVPB STA (08:44)
[2021-08-27] MEDS ORDERED: ACETAMINOPHEN IV (For NPO) 1,000 MG in EMPTY BAG 1 BAG IVPB ONE (08:44)
--- NOTE | 2021-08-27 08:53 | P.PN ---
Progress Note - Text Progress Note Date: 08/27/21 A- team: Indication: Nose Bleed Arrived on Scene to find: Patient had lost posterior nasal packing Patient seen and examined at bedside. Patient with head bucket and nose bleeding. This started after sneezing initially per the patient he has a hx of clotting disorder and was on eliquis prior to admission. Vital signs reviewed General: non toxic, no distress, appears at stated age Derm: warm, dry Head: atraumatic, normocephalic, symmetric Eyes: EOMI, no lid lag, anicteric sclera Mouth: no lip lesion, mucus membranes dry, + blood in posterior pharynx Cardiovascular: S1S2 reg, no murmur, positive posterior tibial pulse bilateral, Lungs: Decreased bs bilateral, + accessory muscle use Neuro: CN II-XI grossly intact, no focal neuro deficits Psych: Alert, oriented, Appears anxious Assessment: Posterior Nose bleed Diaphoresis Plan: Rhino Rocket was placed by Gerald Lares NP CBC and PT/PTT ordered Disposition: Remain on floor Notified: [facility] A Total of 20 minutes of critical care time was spent on the complex care of this patient.
[2021-08-27] MEDS: OXYMETAZOLINE 0.05% NASL SPRAY 1 SPRAY BOTTLE NASAL SCH ×2 (08:57→16:07)
[2021-08-27 09:01] LABS: Glucose,Whole Blood 192 mg/dL (75-99)
[2021-08-27 09:18] LABS: Basophils # (A) 0.1 k/uL (0-0.2); Basophils % (A) 0 %; Eosinophils # (A) 0.2 k/uL (0-0.7); Eosinophils % (A) 1 %; HCT 20.4 % (39.0-53.0); Lymphocytes # (A) 2.8 k/uL (1.0-4.8); Lymphocytes % (A) 20 %; MCH 33.9 pg (25.0-35.0); MCHC 33.8 g/dL (31.0-37.0); MCV 100.4 fL (80.0-100.0); Macrocytosis Slight; Mean Platelet Volume 8.3; Monocytes # (A) 0.8 k/uL (0-1.0); Monocytes % (A) 6 %; Neutrophils # (A) 9.5 k/uL (1.3-7.7); Neutrophils % (A) 68 %; Platelet Count 206 k/uL (150-450); RBC 2.03 m/uL (4.30-5.90); RDW 13.9 % (11.5-15.5)
[2021-08-27 09:21] LABS: HGB 6.9 gm/dL (13.0-17.5)
--- NOTE | 2021-08-27 09:41 | P.PN ---
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 Patient states that he woke up around 3 AM and had a sneeze, since then he has been having c ontinuous nosebleed mainly from the left nostril. He applied pressure and the bleeding stopped but couple hours later bleeding started again. Patient came to ER for further evaluation. Otherwise patient denied any complaints of recent illnesses. No headache or dizziness or lightheadedness. No cough or sputum production. No chest pain or shortness of breath. Laboratory data showed WBC 17.6 hemoglobin 16.1 and platelets 231 neutrophils 15.3 INR 1.4 Sodium 138 potassium 4.0 chloride 107 bicarb is 21 BUN 31 and creatinine 0.67 blood sugar is 150 Patient was instructed with Merocel nasal tampon in the left naris as well as right. Patient is also complaining of postnasal dripping at some point. Currently bleeding has stopped. 08/26/2021 Patient is currently sitting in the bed. Still having bleeding from the nose this morning and is also spitting up blood from the postnasal drip. Nasal packing in place. Denied any complaints of headache. No nausea vomiting or abdominal pain or diar preeti. Does have generalized weakness. Able to tolerate oral diet. No fever no chills. No cough or sputum production. Hemoglobin dropped to 8.8 today. Monitor H&H closely. Current medications reviewed. Objective - Vital Signs Vital signs: Vital Signs Temp 97.5 F L 08/26/21 07:57 Pulse 111 H 08/26/21 07:57 Resp 18 08/26/21 07:57 BP 145/81 08/26/21 07:57 Pulse Ox 99 08/26/21 07:57 Intake & Output 08/25/21 08/26/21 08/26/21 18:59 06:59 18:59 Other: Voiding Method Toilet Urinal # Voids 2 2 # Bowel Movements 1 - Exam PHYSICAL EXAMINATION: Patient is lying in the bed comfortably, no acute distress, awake alert and oriented.. HEENT: Normocephalic. Neck is supple. Pupils reactive.Bilateral nasal tampons in place with surroundings dried blood... Oral cavity is moist. Neck reveals no JVD, carotid bruits, or thyromegaly. CHEST EXAMINATION: Trachea is central. Symmetrical expansion. Lung samayoa clear to auscultation and percussion. CARDIAC: Normal S1, S2 with no gallops. No murmurs ABDOMEN: Soft. Bowel sounds normal. No organomegaly. No abdominal bruits. Extremities: reveal no edema. No clubbing or cyanosis Neurologically awake, alert, oriented x3 with well-coordinated movements. No focal deficits noted Skin: No rash or skin lesions. Psychiatric: Cooperative. Nonsuicidal Musculoskeletal: No joint swelling or deformity. Normal range of motion. - Labs CBC & Chem 7: 08/27/21 08:50 08/26/21 05:37 Labs: Abnormal Lab Results - Last 24 Hours (Table) 08/26/21 08/26/21 Range/Units 05:37 05:37 WBC 16.56 H (4.50-10.00) X 10*3/uL RBC 2.71 L (4.40-5.60) X 10*6/uL Hgb 8.8 L (13.0-17.0) g/dL Hct 26.5 L (39.6-50.0) % MCV 97.8 H (80.0-97.0) fL MCH 32.5 H (27.0-32.0) pg Immature Gran # 0.11 H (0.00-0.04) X 10*3/uL Neutrophils # 12.51 H (1.80-7.70) X 10*3/uL Monocytes # 1.53 H (0.20-1.00) X 10*3/uL Carbon Dioxide 16.6 L (20.0-27.5) mmol/L BUN 34.3 H (9.0-27.0) mg/dL BUN/Creatinine Ratio 57.17 H (12.00-20.00) Ratio Glucose 150 H (70-110) mg/dL Calcium 8.3 L (8.7-10.3) mg/dL Assessment and Plan Assessment: Acute blood loss anemia due to nosebleed. Acute nosebleed with patient being on anticoagulation with Xarelto. Clotting disorder, with prior history of DVTs. On long-term anticoagulation. History of basal cell carcinoma of the nose. Osteoarthritis Hypertension Degenerative disc disease History of marijuana use DVT prophylaxis with SCDs Plan: Patient was inserted with nasal tampons to both nares.. Continue monitor for any bleeding. Patient was seen by ENT and nasal symptoms were replaced.. Patient was started on empiric antibiotics and follow-up closely. Monitor H&H. Current home medications. Time with Patient: Greater than 30
[2021-08-27 09:42] LABS: INR 1.1 (<1.2); Partial Thromboplastin Time 22.1 sec (22.0-30.0); Prothrombin Time 11.4 sec (9.0-12.0)
[2021-08-27] MEDS ORDERED: IV FLUID CONTINUATION 600 ML IV ONE (09:55)
[2021-08-27] MEDS ORDERED: OXYMETAZOLINE 0.05% NASL SPRAY 1 SPRAY BOTTLE NASAL ONE (10:33)
[2021-08-27] MEDS ORDERED: THROMBIN (BOVINE) 5,000 UNIT VIAL TOPICAL ONE (10:48)
[2021-08-27] MEDS ORDERED: LACTATED RINGERS 1,000 ML IV ONE (11:11)
[2021-08-27] MEDS ORDERED: MEPERIDINE 50 MG/ML SYRINGE IVP ONE (11:32)
[2021-08-27] MEDS: ACETAMINOPHEN IV (For NPO) 1,000 MG in EMPTY BAG 1 BAG IVPB SCH ×2 (15:07→22:46)
--- NOTE | 2021-08-27 18:28 | OP ---
OPERATIVE REPORT PREOPERATIVE DIAGNOSIS: Severe uncontrolled anterior and posterior epistaxis. POSTOPERATIVE DIAGNOSIS: Severe uncontrolled anterior and posterior epistaxis. ANESTHESIA: General. OPERATIVE PROCEDURE: Emergency control of bilateral anterior and posterior epistaxis via electrocautery and advanced nasal packing. (Operating time approximately one hour.) OPERATING SURGEON: Dr. Munoz. COMPLICATIONS: None. ESTIMATED BLOOD LOSS: Less than 25 mL. OPERATIVE PROCEDURE DESCRIPTION: The patient was placed on the operating table in the supine position. After uneventful induction and endotracheal intubation, satisfactory general anesthesia was obtained. Initially all nasal packing was removed; that is to say, the Merocel nasal tampon was removed from the right naris and the Rhino-Rocket was removed from the left naris. Both nares were then packed with cottonoids which had been saturated with Afrin nasal spray, and these were left in place for a period of approximately 10 minutes to achieve maximum vasoconstriction of the inferior turbinates bilaterally. These cottonoids were removed and replaced by an additional pair of cottonoids which were left in place for a period of approximately 4 additional minutes. Upon removing all cottonoids, inspection revealed that there were multiple bleeding sites anteriorly, posteriorly and superiorly on the right naris and also on the left side. There were multiple lacerations of the mucous membrane of the septum inferiorly and of the inferior turbinates especially on the left side of the nares. In addition there was a bleeding site noted superiorly just above the middle turbinate on the left side. All of these areas were generously cauterized using the suction cautery, beginning on the right side to cauterize the areas of bleeding and subsequently cauterizing the areas of bleeding on the left side of the naris. Inspection revealed that all bleeding had been controlled. Initially both nares were generously dusted with a Charmaine hemostatic powder (thrombin powder). Next, attention was directed toward the right naris, which was packed using a 10 cm Merocel sponge that was inserted along the floor of the nose carefully after lubricating it. Once the Merocel was intact, a nasal speculum was used to manipulate the sponge in such a manner that more Charmaine powder could be packed around the Merocel sponge itself, both anteriorly and superiorly and posteriorly. Next, approximately 5 mL of liquid thrombin was infiltrated into the Merocel sponge using a 5 mL syringe and a 22-gauge needle. Following this, an additional 5 mL was infiltrated more posteriorly into the nasal tampon on the right side using the 5 mL syringe and a 22-gauge needle. Following this, attention was directed to the left side, where an Epistat anterior-posterior nasal balloon was inserted. This balloon apparatus does not have any fabric on it and therefore causes less trauma upon insertion. It consists of silastic tube and silastic balloons. The apparatus was well lubricated and was advanced along the floor of the nose. The posterior balloon was inflated with approximately 4 mL of air. It was subsequently pulled forward to make sure that it was seated properly, and then while pulling anteriorly on the Epistat balloon, the anterior balloon was then inflated with approximately 6 to 7 mL of air. Having completed this, the procedure was terminated. This was an emergency situation and the surgery took approximately one hour to complete. At the end of the surgery, inspection of the nasopharynx did not reveal any evidence of any active bleeding through the posterior choanae. Therefore, the procedure was terminated. There were no intraoperative complications. The patient tolerated the procedure well and was returned to the recovery room in satisfactory condition. JANA / EUNICEN: [id number] / VENESSA
--- NOTE | 2021-08-27 18:31 | PN ---
PROGRESS NOTE DATE OF SERVICE: 08/26/2021. SUBJECTIVE: Vital signs are stable. The patient still continues to bleed slightly off and on. His last hemoglobin was approximately 13 and a new hemoglobin is pending. The patient states that he can still feel blood periodically running down the back of his throat. OBJECTIVE: Examination of the nasal packing reveals that both Merocel sponges appear to be intact and there is no bleeding anteriorly. Examination of the oropharynx reveals that there is only a slight amount of blood running down the posterior pharyngeal wall. Remainder of his physical exam is essentially unremarkable. ASSESSMENT: Bilateral anterior and posterior epistaxis. PLAN: I will see the patient tomorrow. I had originally planned on taking out one of the nasal tampons today. However, because of the fact that he is still bleeding, I have decided to leave both nasal sponges in place. I applied a new mustache dressing to the patient. We will check the patient tomorrow and make a decision whether or not he may need to go to surgery to control his epistaxis. MMKIERAN / EUNICEN: [id number] /
--- NOTE | 2021-08-27 18:37 | PN ---
PROGRESS NOTE DATE OF SERVICE: 08/27/2021. SUBJECTIVE: Vital signs are stable. I was contacted by the nursing staff early this a.m. at approximately 7:15 a.m. and was informed that the patient had essentially partially extruded his nasal packing on the left side. He was bleeding and was extremely nervous and shaky. His new hemoglobin had returned and it was approximately 6.9. Unfortunately, the patient's hemoglobin has to reach approximately 6 before we are allowed to give a transfusion because of the shortage of blood during this COVID epidemic. I informed the nursing staff that I would come in immediately to assess the situation. I advised the nursing staff that while waiting for me to come in to see the patient, they should remove the packing from the left side and spray that area with several puffs of Afrin nasal spray. By the time that I saw the patient in the morning, the emergency response team had already seen the patient and the nurse practitioner had wisely replaced the left-sided nasal packing with a Rhino-Rocket balloon packing. However, the patient was still complaining that there was some blood running down the back of his throat when I arrived. OBJECTIVE: Inspection revealed that the right nasal packing appeared now to be somewhat saturated with blood, probably caused by the patient's forceful coughing spells that he has been having. In addition to this, the patient finds that the Rhino Rocket is quite uncomfortable in the left naris. Examination of the oropharynx revealed that there is some bleeding down the posterior pharyngeal wall. ASSESSMENT: Severe anterior-posterior epistaxis. PLAN: I am going to schedule the patient to be taken to surgery as soon as possible to have the patient undergo control of severe anterior-posterior epistaxis under general anesthesia using cautery. At that time I will probably be able to place a better packing in both nares. The surgical suite will contact the nursing staff on regarding the time for the patient's surgery. He is to remain NPO as of now. MMODL / IJN: [id number] / MTDD
[2021-08-27] MEDS ORDERED: MIDAZOLAM 2 MG/2 ML VIAL ONE (19:58)
[2021-08-27] MEDS ORDERED: DEXAMETHASONE SOD PHOSPHATE 10 MG/ML 1 ML VIAL ONE (19:58)
[2021-08-27] MEDS ORDERED: KETAMINE 10 MG/ML 20 ML VIAL ONE (19:58)
[2021-08-27] MEDS ORDERED: HEPARIN SODIUM,PORCINE 5,000 UNIT/ML 1 ML VIAL ONE (19:58)
[2021-08-27] MEDS ORDERED: ONDANSETRON 4 MG/2 ML VIAL ONE (19:58)
[2021-08-27] MEDS ORDERED: fentaNYL (PF) 50 MCG/ML 2 ML AMP ONE (19:58)
[2021-08-27] MEDS: ATORVASTATIN 40 MG TAB PO SCH (22:47)
[2021-08-28] MEDS: SODIUM CHLORIDE 0.9% 1,000 ML IV SCH ×2 (03:28→16:44)
[2021-08-28] MEDS: ACETAMINOPHEN IV (For NPO) 1,000 MG in EMPTY BAG 1 BAG IVPB SCH ×3 (03:29→23:42)
[2021-08-28] MEDS: PANTOPRAZOLE 40 MG TABLET PO SCH (07:44)
[2021-08-28] MEDS: ALPRAZolam 0.5 MG TAB PO SCH ×3 (08:54→20:48)
[2021-08-28] MEDS: METOPROLOL TARTRATE 25 MG TAB PO SCH ×2 (08:58→20:48)
[2021-08-28] MEDS: lisinopriL 10 MG TAB PO SCH (08:58)
[2021-08-28] MEDS ORDERED: diphenhydrAMINE 25 MG CAP PO STA (13:24)
[2021-08-28 15:14] LABS: Anisocytosis Slight; Basophils % (A) 0 %; Eosinophils % (A) 0 %; HCT 20.4 % (39.0-53.0); Lymphocytes # (A) 2.2 k/uL (1.0-4.8); Lymphocytes % (A) 16 %; MCH 33.1 pg (25.0-35.0); MCHC 33.1 g/dL (31.0-37.0); MCV 100.2 fL (80.0-100.0); Macrocytosis Slight; Mean Platelet Volume 8.1; Monocytes # (A) 0.6 k/uL (0-1.0); Monocytes % (A) 5 %; Neutrophils # (A) 10.4 k/uL (1.3-7.7); Neutrophils % (A) 76 %; Platelet Count 200 k/uL (150-450); RBC 2.04 m/uL (4.30-5.90); RDW 16.7 % (11.5-15.5); WBC 13.6 k/uL (3.8-10.6)
[2021-08-28 15:29] LABS: HGB 6.8 gm/dL (13.0-17.5)
[2021-08-28] MEDS: TEMAZEPAM 15 MG CAP PO PRN (20:48)
[2021-08-28] MEDS: ATORVASTATIN 40 MG TAB PO SCH (20:48)
[2021-08-28] MEDS ORDERED: LORazepam 2 MG/ML INJ IV PRN (23:06)
[2021-08-28] MEDS ORDERED: TRANEXAMIC ACID 1,000 MG in SODIUM CHLORIDE 0.9% 250 ML IV ONE (23:30)
--- NOTE | 2021-08-28 23:49 | P.PN ---
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 Patient states that he woke up around 3 AM and had a sneeze, since then he has been having c ontinuous nosebleed mainly from the left nostril. He applied pressure and the bleeding stopped but couple hours later bleeding started again. Patient came to ER for further evaluation. Otherwise patient denied any complaints of recent illnesses. No headache or dizziness or lightheadedness. No cough or sputum production. No chest pain or shortness of breath. Laboratory data showed WBC 17.6 hemoglobin 16.1 and platelets 231 neutrophils 15.3 INR 1.4 Sodium 138 potassium 4.0 chloride 107 bicarb is 21 BUN 31 and creatinine 0.67 blood sugar is 150 Patient was instructed with Merocel nasal tampon in the left naris as well as right. Patient is also complaining of postnasal dripping at some point. Currently bleeding has stopped. 08/26/2021 Patient is currently sitting in the bed. Still having bleeding from the nose this morning and is also spitting up blood from the postnasal drip. Nasal packing in place. Denied any complaints of headache. No nausea vomiting or abdominal pain or diar preeti. Does have generalized weakness. Able to tolerate oral diet. No fever no chills. No cough or sputum production. Hemoglobin dropped to 8.8 today. Monitor H&H closely. 08/27/2021 Patient did have another episode of acute nosebleed this morning and patient was taken to the OR by ENT. Bleeding source was identified and cauterized and nasal tampons were replaced.. Patient otherwise denied any complaints of chest pain or shortness breath. No headache or dizziness or lightheadedness. No fever no chills. No nausea vomiting abdominal pain or diarrhea. Laboratory data showed WBC 14.0 hemoglobin 6.9 MCV 100.4 and platelets 206 Patient is becoming empiric antibiotics. Xarelto is on hold. Current medications reviewed. Objective - Vital Signs Vital signs: Vital Signs Temp 98.8 F 08/28/21 07:39 Pulse 101 H 08/28/21 07:39 Resp 18 08/28/21 07:39 BP 130/57 08/28/21 07:39 Pulse Ox 98 08/28/21 07:39 Intake & Output 08/27/21 08/28/21 08/28/21 18:59 06:59 18:59 Intake Total 1324 480 Output Total 20 2 Balance 1304 -2 480 Intake: IV 1050 Oral 480 Blood Product 274 Rc Pheresis As-3 Unit 274 [id number] Output: Urine 2 Estimated Blood Loss 20 Other: Voiding Method Toilet Urinal # Voids 2 - Exam PHYSICAL EXAMINATION: Patient is lying in the bed comfortably, no acute distress, awake alert and oriented.. HEENT: Normocephalic. Neck is supple. Pupils reactive.Bilateral nasal tampons in place with surroundings dried blood... Oral cavity is moist. Neck reveals no JVD, carotid bruits, or thyromegaly. CHEST EXAMINATION: Trachea is central. Symmetrical expansion. Lung samayoa clear to auscultation and percussion. CARDIAC: Normal S1, S2 with no gallops. No murmurs ABDOMEN: Soft. Bowel sounds normal. No organomegaly. No abdominal bruits. Extremities: reveal no edema. No clubbing or cyanosis Neurologically awake, alert, oriented x3 with well-coordinated movements. No focal deficits noted Skin: No rash or skin lesions. Psychiatric: Cooperative. Nonsuicidal Musculoskeletal: No joint swelling or deformity. Normal range of motion. - Labs CBC & Chem 7: 08/28/21 14:46 08/26/21 05:37 Labs: Abnormal Lab Results - Last 24 Hours (Table) 08/27/21 Range/Units 08:50 Crossmatch See Detail Assessment and Plan Assessment: Acute blood loss anemia due to nosebleed. severe posterior anterior uncontrolled epistaxis. Patient was taken to the OR and status post cauterization of the bleeding source on 08/27/2021. Acute nosebleed with patient being on anticoagulation with Xarelto. Clotting disorder, with prior history of DVTs. On long-term anticoagulation. History of basal cell carcinoma of the nose. Osteoarthritis Hypertension Degenerative disc disease History of marijuana use DVT prophylaxis with SCDs Plan: Patient was inserted with nasal tampons to both nares..Patient was taken to the OR and status post cauterization of the bleeding source on 08/27/2021 for repeat bleeding. Patient was started on empiric antibiotics and follow-up closely. Monitor H&H. Current home medications. ENT on board. Time with Patient: Greater than 30
--- NOTE | 2021-08-28 23:50 | P.PN ---
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 Patient states that he woke up around 3 AM and had a sneeze, since then he has been having c ontinuous nosebleed mainly from the left nostril. He applied pressure and the bleeding stopped but couple hours later bleeding started again. Patient came to ER for further evaluation. Otherwise patient denied any complaints of recent illnesses. No headache or dizziness or lightheadedness. No cough or sputum production. No chest pain or shortness of breath. Laboratory data showed WBC 17.6 hemoglobin 16.1 and platelets 231 neutrophils 15.3 INR 1.4 Sodium 138 potassium 4.0 chloride 107 bicarb is 21 BUN 31 and creatinine 0.67 blood sugar is 150 Patient was instructed with Merocel nasal tampon in the left naris as well as right. Patient is also complaining of postnasal dripping at some point. Currently bleeding has stopped. 08/26/2021 Patient is currently sitting in the bed. Still having bleeding from the nose this morning and is also spitting up blood from the postnasal drip. Nasal packing in place. Denied any complaints of headache. No nausea vomiting or abdominal pain or diar preeti. Does have generalized weakness. Able to tolerate oral diet. No fever no chills. No cough or sputum production. Hemoglobin dropped to 8.8 today. Monitor H&H closely. 08/27/2021 Patient did have another episode of acute nosebleed this morning and patient was taken to the OR by ENT. Bleeding source was identified and cauterized and nasal tampons were replaced.. Patient otherwise denied any complaints of chest pain or shortness breath. No headache or dizziness or lightheadedness. No fever no chills. No nausea vomiting abdominal pain or diarrhea. Laboratory data showed WBC 14.0 hemoglobin 6.9 MCV 100.4 and platelets 206 Patient is becoming empiric antibiotics. Xarelto is on hold. 08/28/2021 Patient is currently resting in the bed. No active bleeding noted today. Patient feels better. Neurologic compared to yesterday. Patient has been afebrile. No chest pain or shortness breath. Patient is tolerating oral diet and IV fluids will be reduced to 75 cc/h. Continued on empiric antibiotics. No other acute overnight issues. Current medications reviewed. Objective - Vital Signs Vital signs: Vital Signs Temp 98.4 F 08/28/21 19:34 Pulse 87 08/28/21 19:34 Resp 14 08/28/21 19:34 BP 125/68 08/28/21 19:34 Pulse Ox 100 08/28/21 19:34 Intake & Output 08/28/21 08/28/21 08/29/21 06:59 18:59 06:59 Intake Total 1235 Output Total 2 Balance -2 1235 Intake: Oral 960 Blood Product 275 Rc Pheresis As-3 Unit 275 [id number] Output: Urine 2 Other: Voiding Method Toilet Urinal # Voids 2 1 - Exam PHYSICAL EXAMINATION: Patient is lying in the bed comfortably, no acute distress, awake alert and oriented.. HEENT: Normocephalic. Neck is supple. Pupils reactive.Bilateral nasal tampons in place with surroundings dried blood... Oral cavity is moist. Neck reveals no JVD, carotid bruits, or thyromegaly. CHEST EXAMINATION: Trachea is central. Symmetrical expansion. Lung samayoa clear to auscultation and percussion. CARDIAC: Normal S1, S2 with no gallops. No murmurs ABDOMEN: Soft. Bowel sounds normal. No organomegaly. No abdominal bruits. Extremities: reveal no edema. No clubbing or cyanosis Neurologically awake, alert, oriented x3 with well-coordinated movements. No focal deficits noted Skin: No rash or skin lesions. Psychiatric: Cooperative. Nonsuicidal Musculoskeletal: No joint swelling or deformity. Normal range of motion. - Labs CBC & Chem 7: 08/28/21 14:46 08/26/21 05:37 Labs: Abnormal Lab Results - Last 24 Hours (Table) 08/27/21 08/28/21 Range/Units 08:50 14:46 WBC 13.6 H (3.8-10.6) k/uL RBC 2.04 L (4.30-5.90) m/uL Hgb 6.8 L* (13.0-17.5) gm/dL Hct 20.4 L (39.0-53.0) % MCV 100.2 H (80.0-100.0) fL RDW 16.7 H (11.5-15.5) % Neutrophils # 10.4 H (1.3-7.7) k/uL Crossmatch See Detail Assessment and Plan Assessment: Acute blood loss anemia due to nosebleed. severe posterior anterior uncontrolled epistaxis. Patient was taken to the OR and status post cauterization of the bleeding source on 08/27/2021. Acute nosebleed with patient being on anticoagulation with Xarelto. Clotting disorder, with prior history of DVTs. On long-term anticoagulation. History of basal cell carcinoma of the nose. Osteoarthritis Hypertension Degenerative disc disease History of marijuana use DVT prophylaxis with SCDs Plan: Patient was inserted with nasal tampons to both nares..Patient was taken to the OR and status post cauterization of the bleeding source on 08/27/2021 for repeat bleeding. Patient was started on empiric antibiotics and follow-up closely. Monitor H&H. Current home medications. ENT on board.
[2021-08-29] MEDS: LORazepam 2 MG/ML INJ IV SCH ×3 (00:04→08:45)
[2021-08-29] MEDS: SODIUM CHLORIDE 0.9% 1,000 ML IV SCH (05:20)
[2021-08-29] MEDS: ACETAMINOPHEN IV (For NPO) 1,000 MG in EMPTY BAG 1 BAG IVPB SCH ×3 (05:40→19:11)
[2021-08-29] MEDS: METOPROLOL TARTRATE 25 MG TAB PO SCH ×2 (08:44→20:52)
[2021-08-29] MEDS: PANTOPRAZOLE 40 MG TABLET PO SCH (08:44)
[2021-08-29] MEDS: lisinopriL 10 MG TAB PO SCH (08:44)
[2021-08-29 09:21] LABS: Basophils # (A) 0.05 X 10*3/uL (0.00-0.10); Basophils % (A) 0.4 %; Eosinophils % (A) 1.6 %; HCT 21.5 % (39.6-50.0); HGB 7.1 g/dL (13.0-17.0); Immature Grans, Automated 0.9 %; Lymphocytes % (A) 20.6 %; MCH 31.8 pg (27.0-32.0); MCV 96.4 fL (80.0-97.0); Mean Platelet Volume 10.2 fL (9.5-12.2); Monocytes # (A) 1.08 X 10*3/uL (0.20-1.00); Monocytes % (A) 8.6 %; NRBC Per 100 WBC 0.3 /100 WBCS (0.0-0.0); Neutrophils # (A) 8.56 X 10*3/uL (1.80-7.70); Neutrophils % (A) 67.9 %; Platelet Count 168 X 10*3/uL (140-440); RBC 2.23 X 10*6/uL (4.40-5.60); RDW 17.5 % (11.5-14.5)
[2021-08-29 10:04] LABS: African American GFR (CKD) 127.6 (60.0-200.0); Anion Gap 9.5 mmol/L (10.00-18.00); BUN/Creat Ratio 21.33 Ratio (12.00-20.00); Blood Urea Nitrogen 12.8 mg/dL (9.0-27.0); Calcium 7.7 mg/dL (8.7-10.3); Carbon Dioxide 22.5 mmol/L (20.0-27.5); Non-African American GFR(CKD) 110.1 (60.0-200.0); Potassium 3.3 mmol/L (3.5-5.5)
--- NOTE | 2021-08-29 11:28 | PN ---
PROGRESS NOTE DATE OF SERVICE: 08/29/2021 SUBJECTIVE: I was called at approximately between 2:30 and 3:00 a.m. on the morning of 08/29/2021 and I was informed that the patient had once again, for the fourth time, pulled out the left nasal balloon packing. The nursing staff stated that there was no active bleeding, and again the patient did not know how he had accidently pulled the packing out. I advised the nursing staff that I would not be coming in this early in the morning to reinsert the packing, and that I would instead reinsert it sometime later in the day if needed.When I arrived at the patient"s room later in the day it was noted that the patient had had no further bleeding. OBJECTIVE: Examination reveals no evidence of any active bleeding. I decided to remove the packing on the left side. Inspection revealed no bleeding from the left side. I placed several puffs of Afrin nasal spray in each nostril. I will leave all packing out for now. ASSESSMENT: Bilateral severe anterior-posterior epistaxis. PLAN: The patient's medication has been changed from oral scheduled Xanax 0.5 mg to IV Ativan 1 mg scheduled t.i.d. In addition to this, we will be getting a psychiatric consult to evaluate the patient's severe anxiety and his PTSD. I will placed orders for the patient to have two puffs of Afrin nasal spray to be sprayed into each nostril T.I.D. If the patient does not have any further bleeding I may recommend discharge to home on Friday08/31/2021. . JANA / LANDON: [id number] / VENESSA
--- NOTE | 2021-08-29 11:34 | PN ---
PROGRESS NOTE DATE OF SERVICE: 08/28/2021. SUBJECTIVE: On my way to see the patient for his daily visit, I was advised by the RN taking care of the patient that he had accidentally pulled out his nasal balloon packing from the left side. However, he was not bleeding. Vital signs are stable. OBJECTIVE: Upon entering the room, it was noted that the Epistat nasal balloon was extruded, and inspection of the balloon revealed that the air had deflated out of the balloon. The patient states that he does not recall how he pulled the balloon out. With the assistance of the nursing staff, the Epistat nasal balloon was lubricated and reinserted in the left naris in an atraumatic fashion. Next, the posterior balloon was inflated with approximately 7 mL of saline and the anterior balloon was inflated with approximately 4 mL of saline. Approximately half of the saline was removed from each nasal balloon for the patient's comfort. ASSESSMENT: Bilateral anterior-posterior epistaxis. PLAN: Hopefully the nasal packing will remain intact. The only change in the patient's medication is that I am going to have them give him the Xanax t.i.d. on a scheduled method. Hopefully this will keep the patient's anxiety under control. The patient is a who unfortunately suffers from significant anxiety and was diagnosed with PTSD. He apparently has never gotten any treatment for either disorder. I will continue to see the patient daily. It is to be noted that he is one day status post control of bilateral anterior-posterior epistaxis under general anesthesia with bilateral nasal packing. The right nasal packing appears to be intact. MMODL / IJN: [id number] /
[2021-08-29] MEDS ORDERED: Potassium Replacement Protocol 1 EACH MISC MISCELLANE PRN (12:07)
[2021-08-29] MEDS: POTASSIUM CHLORIDE ER 20 MEQ TAB.ER PO SCH ×4 (12:48→22:14)
[2021-08-29] MEDS ORDERED: hydrOXYzine pamoate 25 MG CAP PO PRN (12:59)
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
[2021-08-29] MEDS: SERTRALINE 50 MG TAB PO SCH (14:30)
[2021-08-29] MEDS: OXYMETAZOLINE 0.05% NASL SPRAY 1 SPRAY BOTTLE EA NOSTRIL SCH ×2 (18:30→20:52)
[2021-08-29] MEDS: traZODone HCL 50 MG TAB PO SCH (20:52)
[2021-08-29] MEDS: ATORVASTATIN 40 MG TAB PO SCH (20:52)
[2021-08-29] MEDS ORDERED: POTASSIUM CHLORIDE ER 20 MEQ TAB.ER PO SCH (22:00)
--- NOTE | 2021-08-29 23:58 | P.PN ---
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 Patient states that he woke up around 3 AM and had a sneeze, since then he has been having c ontinuous nosebleed mainly from the left nostril. He applied pressure and the bleeding stopped but couple hours later bleeding started again. Patient came to ER for further evaluation. Otherwise patient denied any complaints of recent illnesses. No headache or dizziness or lightheadedness. No cough or sputum production. No chest pain or shortness of breath. Laboratory data showed WBC 17.6 hemoglobin 16.1 and platelets 231 neutrophils 15.3 INR 1.4 Sodium 138 potassium 4.0 chloride 107 bicarb is 21 BUN 31 and creatinine 0.67 blood sugar is 150 Patient was instructed with Merocel nasal tampon in the left naris as well as right. Patient is also complaining of postnasal dripping at some point. Currently bleeding has stopped. 08/26/2021 Patient is currently sitting in the bed. Still having bleeding from the nose this morning and is also spitting up blood from the postnasal drip. Nasal packing in place. Denied any complaints of headache. No nausea vomiting or abdominal pain or diar preeti. Does have generalized weakness. Able to tolerate oral diet. No fever no chills. No cough or sputum production. Hemoglobin dropped to 8.8 today. Monitor H&H closely. 08/27/2021 Patient did have another episode of acute nosebleed this morning and patient was taken to the OR by ENT. Bleeding source was identified and cauterized and nasal tampons were replaced.. Patient otherwise denied any complaints of chest pain or shortness breath. No headache or dizziness or lightheadedness. No fever no chills. No nausea vomiting abdominal pain or diarrhea. Laboratory data showed WBC 14.0 hemoglobin 6.9 MCV 100.4 and platelets 206 Patient is becoming empiric antibiotics. Xarelto is on hold. 08/28/2021 Patient is currently resting in the bed. No active bleeding noted today. Patient feels better. Neurologic compared to yesterday. Patient has been afebrile. No chest pain or shortness breath. Patient is tolerating oral diet and IV fluids will be reduced to 75 cc/h. Continued on empiric antibiotics. No other acute overnight issues. 08/29/2021 Patient is currently lying in the bed comfortably. Awake alert and oriented x3. No episodes of further bleeding. Nasal tampon packing has been removed by ENT. Laboratory showed hemoglobin went up to 7.1. Potassium 3.3 which is being repl aced. Patient was also complaining of depression and seen by psychiatry. Started on Zoloft and trazodone at bedtime. Continue to monitor CBC tomorrow. Patient is tolerating oral diet. IV fluids will be discontinued. Current medications reviewed. Objective - Vital Signs Vital signs: Vital Signs Temp 98.1 F 08/29/21 14:29 Pulse 61 08/29/21 14:29 Resp 20 08/29/21 14:29 BP 113/75 08/29/21 14:29 Pulse Ox 97 08/29/21 14:29 Intake & Output 08/29/21 08/29/21 08/30/21 06:59 18:59 06:59 Intake Total 1080 Output Total 600 Balance 480 Intake: Oral 1080 Output: Urine 600 Other: Voiding Method Toilet Urinal Urinal # Voids 2 3 - Exam PHYSICAL EXAMINATION: Patient is lying in the bed comfortably, no acute distress, awake alert and oriented.. HEENT: Normocephalic. Neck is supple. Pupils reactive.Bilateral nasal tampons in place with surroundings dried blood... Oral cavity is moist. Neck reveals no JVD, carotid bruits, or thyromegaly. CHEST EXAMINATION: Trachea is central. Symmetrical expansion. Lung samayoa clear to auscultation and percussion. CARDIAC: Normal S1, S2 with no gallops. No murmurs ABDOMEN: Soft. Bowel sounds normal. No organomegaly. No abdominal bruits. Extremities: reveal no edema. No clubbing or cyanosis Neurologically awake, alert, oriented x3 with well-coordinated movements. No fo donna deficits noted Skin: No rash or skin lesions. Psychiatric: Cooperative. Nonsuicidal Musculoskeletal: No joint swelling or deformity. Normal range of motion. - Labs CBC & Chem 7: 08/29/21 04:41 02/02/22 18:01 Labs: Abnormal Lab Results - Last 24 Hours (Table) 08/29/21 08/29/21 Range/Units 04:41 04:41 WBC 12.60 H (4.50-10.00) X 10*3/uL RBC 2.23 L (4.40-5.60) X 10*6/uL Hgb 7.1 L (13.0-17.0) g/dL Hct 21.5 L (39.6-50.0) % RDW 17.5 H (11.5-14.5) % Absolute Nucleated RBC 0.04 H (0.00-0.00) X 10*3/uL Immature Gran # 0.11 H (0.00-0.04) X 10*3/uL Neutrophils # 8.56 H (1.80-7.70) X 10*3/uL Monocytes # 1.08 H (0.20-1.00) X 10*3/uL NRBC/100 WBC Diff 0.3 H (0.0-0.0) /100 WBCS Potassium 3.3 L (3.5-5.5) mmol/L Chloride 112 H (96-109) mmol/L Anion Gap 9.50 L (10.00-18.00) mmol/L BUN/Creatinine Ratio 21.33 H (12.00-20.00) Ratio Calcium 7.7 L (8.7-10.3) mg/dL Assessment and Plan Assessment: Acute blood loss anemia due to nosebleed. severe posterior anterior uncontrolled epistaxis. Patient was taken to the OR and status post cauterization of the bleeding source on 08/27/2021.Nasal packing removed 08/29/2021. Acute nosebleed with patient being on anticoagulation with Xarelto. Clotting disorder, with prior history of DVTs. On long-term anticoagulation. Depression. History of basal cell carcinoma of the nose. Osteoarthritis Hypertension Degenerative disc disease History of marijuana use DVT prophylaxis with SCDs Plan: Patient was inserted with nasal tampons to both nares..Patient was taken to the OR and status post cauterization of the bleeding source on 08/27/2021 for repeat bleeding. Nasal packing removed 08/29/2021. Patient was started on empiric antibiotics and follow-up closely. Monitor H&H. Current home medications. ENT on board. Time with Patient: Greater than 30
[2021-08-30 06:18] LABS: Anisocytosis Slight; Basophils # (A) 0.1 k/uL (0-0.2); Basophils % (A) 1 %; Eosinophils # (A) 0.5 k/uL (0-0.7); Eosinophils % (A) 4 %; HCT 25.4 % (39.0-53.0); Lymphocytes # (A) 1.7 k/uL (1.0-4.8); Lymphocytes % (A) 15 %; MCV 96.8 fL (80.0-100.0); Macrocytosis Slight; Mean Platelet Volume 8.1; Monocytes # (A) 0.7 k/uL (0-1.0); Monocytes % (A) 6 %; Neutrophils # (A) 8.1 k/uL (1.3-7.7); Neutrophils % (A) 73 %; Platelet Count 220 k/uL (150-450); RBC 2.62 m/uL (4.30-5.90); RDW 16.8 % (11.5-15.5); WBC 11.2 k/uL (3.8-10.6)
[2021-08-30 06:28] LABS: HGB 8.7 gm/dL (13.0-17.5)
[2021-08-30 06:37] LABS: African American GFR (CKD) >90 (>60 ml/min/1.73 sqM); Anion Gap 3 mmol/L; Blood Urea Nitrogen 11 mg/dL (9-20); Calcium 8.3 mg/dL (8.4-10.2); Carbon Dioxide 25 mmol/L (22-30); Chloride 111 mmol/L (98-107); Glucose 110 mg/dL (74-99); Non-African American GFR(CKD) >90 (>60 ml/min/1.73 sqM); Potassium 4.1 mmol/L (3.5-5.1); Sodium 139 mmol/L (137-145)
[2021-08-30] MEDS: SODIUM CHLORIDE 0.9% 1,000 ML IV SCH (06:46)
[2021-08-30] MEDS: SERTRALINE 50 MG TAB PO SCH (07:11)
[2021-08-30] MEDS: METOPROLOL TARTRATE 25 MG TAB PO SCH ×2 (07:12→20:27)
[2021-08-30] MEDS: lisinopriL 10 MG TAB PO SCH (07:12)
[2021-08-30] MEDS: OXYMETAZOLINE 0.05% NASL SPRAY 1 SPRAY BOTTLE EA NOSTRIL SCH ×3 (07:12→20:27)
[2021-08-30] MEDS: PANTOPRAZOLE 40 MG TABLET PO SCH (07:12)
--- NOTE | 2021-08-30 14:02 | P.PN ---
Progress Note - Text Progress Note Date: 08/30/21 Interval History: Patient was seen today for psychiatric follow-up regarding patient's PTSD and depression. Patient appears to have an improvement in his affect today. He states that his mood and anxiety have improved significantly since yesterday. He states he feels "more mellow". He claims that he was able to sleep much better last night. She appears to be more future oriented. He claims that he wants to live for his 2 kids and his grandchildren. He states that he did not have any nightmares last night. He claims that her appetite. At this time patient denies any suicidal or homical ideations, intent or plan. Patient denies any auditory, visual hallucinations and denies any paranoia or delusions. Patient denies any side effects from the medications and has been compliant with meds. General Appearance: Patient appears to be stated age is alert, pleasant, and attempts to be cooperative. Patient appears to have fair hygiene and grooming wearing hospital gown with fair eye contact. Behavior: Patient is calmly lying in bed without any agitated behavior. More cooperative today. Speech: Patient's speech is fluent and nonpressured. Mood/Affect: Patient reports their mood is "better", affect is congruent Suicidality/Homicidality: Patient denies having any suicidal or homicidal ideation intent or plan. Perceptions: Patient denies any visual hallucinations and denies any auditory hallucinations Though content/process: There is no evidence of any delusional thought content and thought process is linear and goal-directed. More future oriented Memory and concentration: AOX3, grossly intact for the purposes of this session. Can spell "WORLD" backwards Judgment and insight: Fair IMPRESSIONS: PTSD Depressive disorder unspecified Cannabis use disorder mild PLAN: -At this time patient DOES NOT meet criteria for inpatient psychiatric admission. -Would recommend the following medication changes/additions: Zoloft 50 mg daily for mood/anxiety, Trazodone 50 mg daily at bedtime for insomnia/mood. Vistaril 25 mg BID prn for anxiety. -field worker to provide patient with outpatient mental health/psychiatry resources for appropriate follow up upon discharge -Communicated plan to patient's nurse -At this time psychiatry will sign off -Please contact with any questions.
[2021-08-30 14:36] VITALS: BMI 28.7
[2021-08-30] MEDS: traZODone HCL 50 MG TAB PO SCH (20:27)
[2021-08-30] MEDS: ATORVASTATIN 40 MG TAB PO SCH (20:27)
[2021-08-30] MEDS: ACETAMINOPHEN TAB 325 MG TAB PO PRN (23:02)
--- NOTE | 2021-08-31 06:11 | PN ---
PROGRESS NOTE DATE OF SERVICE: 08/30/2021 SUBJECTIVE: Vital signs stable. The patient has not had any further bleeding for the past 48 hours. I have advised the patient that from an ENT standpoint, I would advise the staff that he can be discharged on Friday08/31/2021. OBJECTIVE: Clinical examination of both the left and the right naris does not reveal any evidence of any active bleeding. The patient has usual scabs present intranasally related to his cauterization during surgery. Examination of oropharynx does not reveal any bleeding down the posterior pharynx. The remainder of the head and neck exam and physical exam is unchanged. ASSESSMENT: Severe bilateral anterior-posterior epistaxis. PLAN: The patient could be discharged home on 08/31/2021. I have advised the patient that I would like to see him in my office on of next week. I gave the patient my business card so he may call the office on Friday and schedule an appointment. I will dictate specific discharge instructions for this patient regarding his avoiding blowing his nose, sneezing with his mouth open, and not doing any activity that might cause him to strain. In addition, it will be a good idea to notify the psychiatric service of the patient's discharge because they may want to write him a prescription for his Zoloft and advise him of any possible followup post discharge. I will leave a prescription for Keflex 500 mg capsules, one po B.I.D., #20 on the patient"s chart. Thank you for allowing me to assist in the care of this patient. JANA / EUNICEN: [id number] / VENESSA
[2021-08-31] MEDS: PANTOPRAZOLE 40 MG TABLET PO SCH (07:24)
[2021-08-31] MEDS: OXYMETAZOLINE 0.05% NASL SPRAY 1 SPRAY BOTTLE EA NOSTRIL SCH (10:01)
[2021-08-31] MEDS: SERTRALINE 50 MG TAB PO SCH (10:02)
[2021-08-31] MEDS: METOPROLOL TARTRATE 25 MG TAB PO SCH (10:02)
[2021-08-31] MEDS: lisinopriL 10 MG TAB PO SCH (10:02)
[2021-08-31 15:05] VITALS: BP 147/58; PULSE 84; RESP 17; TEMP 98.6
== END 2021-08-31 15:29 | disposition home or self-care (01) | DRG 151 ==
LOC: EC 09:10 → 4SSUR 17:35 → OBSVTOIN 08-27 10:28
PROVIDERS: ADMIT Hospitalist; ATTEND Hospitalist
PROC: 2Y41X5Z Packing of Nasal Region using Packing Material (ICD-10-PCS; principal; 2021-08-27 09:15)
DX: R04.0 Epistaxis (principal); D62 Acute posthemorrhagic anemia; D68.32 Hemorrhagic disorder due to extrinsic circulating anticoagulants; D72.828 Other elevated white blood cell count; F12.10 Cannabis abuse, uncomplicated; F17.210 Nicotine dependence, cigarettes, uncomplicated; F32.A Depression, unspecified; T45.515A Adverse effect of anticoagulants, initial encounter; F43.10 Post-traumatic stress disorder, unspecified; I10 Essential (primary) hypertension; M19.90 Unspecified osteoarthritis, unspecified site; Z79.01 Long term (current) use of anticoagulants; Z79.82 Long term (current) use of aspirin; Z79.899 Other long term (current) drug therapy; Z82.49 Family history of ischemic heart disease and other diseases of the circulatory system; Z82.5 Family history of asthma and other chronic lower respiratory diseases; Z85.828 Personal history of other malignant neoplasm of skin; Z86.718 Personal history of other venous thrombosis and embolism; Z91.030 Bee allergy status
CPT/HCPCS: 30903; 36415; 80048; 84132; 85025; 85027; 85610; 85730; 86850; 86900; 86901; 86920; 96360; 99285

== ENCOUNTER 2022-07-30 06:56 | Day surgery (SDC) | payer MEDICARE, OTHER ==
[2022-07-26 10:54] VITALS: BMI 25.1
[~2022-07-30 06:56] MED LIST changes: -LIDOCAINE 1% 20 ML VIAL (10MG/ML) FOR IV START INTRADERMA PRN
[2022-07-30] MEDS ORDERED: LACTATED RINGERS 1,000 ML IV ONE (07:28)
[2022-07-30 07:30] VITALS: RESP 16; TEMP 97.7
[2022-07-30] MEDS ORDERED: LIDOCAINE 2% INJ 20 MG/ML (2 ML VIAL) ONE (07:56)
[2022-07-30] MEDS ORDERED: PROPOFOL 10 MG/ML 20 ML VIAL IV ONE (07:56)
--- NOTE | 2022-07-30 08:13 | P.PCN ---
Date of Procedure: 07/30/22 Procedure(s) Performed: BRIEF HISTORY: Patient is a 62-year-old pleasant white male scheduled for an elective colonoscopy as a part of evaluation of prior history of colon polyps. Last colonoscopy was 5 years ago. PROCEDURE PERFORMED: Colonoscopy with biopsy. PREOPERATIVE DIAGNOSIS: History of colon polyps. IV sedation per Anesthesia. PROCEDURE: After informed consent was obtained, the patient, was brought into the endoscopy unit. IV sedation was administered by Anesthesia under continuous monitoring. Digital rectal examination was normal. Initially the Olympus CF-160 flexible video colonoscope was then inserted in the rectum, gradually advanced into the cecum without any difficulty. Careful examination was performed as the scope was gradually being withdrawn. Ileocecal valve and the appendiceal orifice were visualized and appeared normal. Prep was excellent. Mucosa of the cecum appeared normal. In the ascending colon there was a 5 limited polyp removed by cold biopsy. Rest of the, ascending colon, transverse colon, descending colon, sigmoid colon, and rectum appeared normal. Retroflexion was performed in the rectum and no lesions were seen. The patient tolerated the procedure well. IMPRESSION: 5 mm ascending colon polyp status post removal by cold biopsy. Scattered left sided diverticulosis RECOMMENDATIONS: Findings of this examination were discussed with the patient as well as his family. He was advised to follow with the biopsy results. If the biopsy results adenoma he can have a repeat colonoscopy in 5 years.
[2022-07-30 08:42] VITALS: BP 130/79; PULSE 74
== END 2022-07-30 08:55 | disposition home or self-care (01) ==
LOC: ORWHC2ENDO 06:56
PROVIDERS: ATTEND Internal Medicine Gastroenterology
DX: Z12.11 Encounter for screening for malignant neoplasm of colon (principal); D12.2 Benign neoplasm of ascending colon; K57.30 Diverticulosis of large intestine without perforation or abscess without bleeding; I10 Essential (primary) hypertension; E78.5 Hyperlipidemia, unspecified; F12.20 Cannabis dependence, uncomplicated; Z86.79 Personal history of other diseases of the circulatory system; Z79.82 Long term (current) use of aspirin; Z79.811 Long term (current) use of aromatase inhibitors; Z79.891 Long term (current) use of opiate analgesic; Z79.01 Long term (current) use of anticoagulants; Z79.899 Other long term (current) drug therapy; Z79.83 Long term (current) use of bisphosphonates; Z91.013 Allergy to seafood; Z91.030 Bee allergy status; Z91.048 Other nonmedicinal substance allergy status
CPT/HCPCS: 88305; 45380; J2704; J2001

== ENCOUNTER 2025-02-10 14:57 | Emergency (ER) | payer OTHER ==
[2025-02-10 15:06] VITALS: RESP 16
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
[2025-02-10] MEDS: CEPHALEXIN 500 MG CAP PO STA (15:37)
[2025-02-10] MEDS: DIPH,PERTUS(ACELL)TETVAC-LF 0.5 ML VIAL IM ONE (15:38)
[2025-02-10] MEDS: LIDOCAINE 1% INJ 10MG/ML (20 ML MDV) SQ ONE (15:38)
--- NOTE | 2025-02-10 16:05 | XR ---
EXAMINATION TYPE: XR hand complete RT DATE OF EXAM: 02/10/2025 4:01 PM COMPARISON: None CLINICAL INDICATION: Male, 64 years old with history of Right hand versus Dremel, dorsal first metaca rpal; PHH, pain TECHNIQUE: 3 views FINDINGS: Mild vascular spurring at the first MCP and triscaphe joints as well as the first MCP and I P joints. No acute fracture, subluxation, dislocation seen. No retained radiopaque foreign body ident ified. Some degenerative spurring at the distal radial ulnar joint. Soft tissue injury overlying the base of the thumb. IMPRESSION: Mild osteoarthritic change throughout the thumb. Soft tissue injury overlying the base of the thumb. No acute osseous abnormality seen. No retained radiopaque foreign body. [facility], Workstation: LORIE-MARIA ESTHER, 02/10/2025 4:03 PM
[2025-02-10 17:43] VITALS: BP 118/78; PULSE 77; TEMP 98.1
== END 2025-02-10 17:45 | disposition home or self-care (01) ==
LOC: EC 14:57
DX: S61.411A Laceration without foreign body of right hand, initial encounter (principal); S66.921A Laceration of unspecified muscle, fascia and tendon at wrist and hand level, right hand, initial encounter; Z91.030 Bee allergy status; Z88.8 Allergy status to other drugs, medicaments and biological substances; Z91.013 Allergy to seafood; Z87.891 Personal history of nicotine dependence; Z23 Encounter for immunization; W26.9XXA Contact with unspecified sharp object(s), initial encounter; Y93.02 Activity, running; Y92.009 Unspecified place in unspecified non-institutional (private) residence as the place of occurrence of the external cause
CPT/HCPCS: 12002; 90471; 90715; 99283